=== PATIENT | female | born 1990 | race Caucasian/White ===

== ENCOUNTER 2018-09-01 19:51 | Emergency (ER) | payer OTHER ==
[~2018-09-01] VITALS: Ht 162.6 cm; Wt 45.4 kg
[2018-09-01] MEDS ORDERED: CYMBALTA30 MG (20:06)
[2018-09-01] MEDS ORDERED: QUETIAPINE FUM100 MG (20:06)
[2018-09-01] MEDS ORDERED: ATIVAN1 M1 (20:06)
[2018-09-01] MEDS ORDERED: DICYCLOMINE HCL20 MG (20:07)
[2018-09-01] MEDS ORDERED: TOPAMAX100 MG (20:07)
[2018-09-01] MEDS ORDERED: ONDANSETRON HCL4 M2 (20:07)
[2018-09-01 20:37] LABS: URINE BILIRUBIN NEGATIVE (Negative); URINE BLOOD TRACE (Negative); URINE CLARITY SL CLOUDY; URINE COLOR YELLOW; URINE GLUCOSE-RANDOM NEGATIVE (Negative); URINE KETONES NEGATIVE (Negative); URINE LEUKOCYTES-REFLEX TRACE (Negative); URINE NITRITE-REFLEX NEGATIVE (Negative); URINE PROTEIN TRACE (Negative); URINE SPECIFIC GRAVITY 1.015 (1.005-1.030)
[2018-09-01 20:54] LABS: AMORPHOUS PHOSPHATES Moderate /LPF (None Seen); MUCUS 0-3 Light strn/LPF (None Seen); SQUAMOUS >10 Many /LPF (0-3)
[2018-09-01 20:55] LABS: CASTS None Seen /LPF (None Seen); URINE RBC 0-2 Rare /HPF (0-2)
[2018-09-01 20:56] LABS: URINE WBC-REFLEX 0-5 Rare /HPF (0-5)
[2018-09-01 20:57] LABS: BACTERIA-REFLEX None Seen /HPF (None Seen)
[2018-09-01 21:06] LABS: ABSOLUTE LYMPHOCYTES 1.4 thou/uL (0.8-5.3); ABSOLUTE MONOCYTES 0.3 thou/uL (0.0-1.2); ABSOLUTE NEUTROPHILS 5.5 thou/uL (1.6-8.1); BASOPHILS 0.2 %; EOSINOPHILS 0.5 %; HEMATOCRIT 34.2 % (37.0-47.0); HEMOGLOBIN 11.6 gm/dL (12.0-15.0); MCH 29.2 pg (26.0-34.0); MCHC 33.9 g/dL (28.0-37.0); MCV 86.1 fL (80.0-100.0); MONOCYTES 4.5 %; MPV 9.8 fl. (7.2-11.1); NUCLEATED RBCS 0 /100WBC; PLATELET COUNT* 124 thou/uL (150-400); POLYS 75.8 %; RBC 3.97 mil/uL (4.20-5.00); RDW-CV 14.5 % (10.5-14.5); WBC 7.3 thou/uL (4.0-11.0)
[2018-09-01 21:13] LABS: CALCIUM 8.2 mg/dL (8.5-10.1); CREATININE 0.8 mg/dL (0.6-1.3); POTASSIUM 3.3 mmol/L (3.5-5.1)
[2018-09-01 21:18] LABS: ALBUMIN 3.6 g/dL (3.4-5.0); TOTAL BILIRUBIN 0.5 mg/dL (<0.1-1.0); TOTAL PROTEIN 6.2 g/dL (6.4-8.2)
[2018-09-01] MEDS ORDERED: ACETAMINOPHEN-1 EAC1 PO (22:30)
[2018-09-01 22:50] VITALS: BP 134/85
== END 2018-09-01 22:51 | disposition home or self-care (01) ==
LOC: M.ERS 19:51
PROVIDERS: Emergency Medicine; Physician Assistant
DX: K52.9 Noninfective gastroenteritis and colitis, unspecified (principal); N83.201 Unspecified ovarian cyst, right side; J45.909 Unspecified asthma, uncomplicated; G43.909 Migraine, unspecified, not intractable, without status migrainosus; Z88.2 Allergy status to sulfonamides; Z88.8 Allergy status to other drugs, medicaments and biological substances; Z90.49 Acquired absence of other specified parts of digestive tract; Z85.41 Personal history of malignant neoplasm of cervix uteri

== ENCOUNTER 2018-11-05 12:00 | Emergency (ER) | payer OTHER ==
[~2018-11-05] VITALS: Ht 162.6 cm; Wt 49.9 kg
[~2018-11-05 12:00] MED LIST: ACETAMINOPHEN-1 EAC1 PO; ATIVAN1 M1; CYMBALTA30 MG; DICYCLOMINE HCL20 MG; ONDANSETRON HCL4 M2; QUETIAPINE FUM100 MG; TOPAMAX100 MG
[2018-11-05] MEDS ORDERED: TRAMADOL 50 MG50 MG PO (13:16)
[2018-11-05 13:38] VITALS: BP 103/78
== END 2018-11-05 13:39 | disposition home or self-care (01) ==
LOC: M.ERS 12:00
DX: S90.122A Contusion of left lesser toe(s) without damage to nail, initial encounter (principal); J45.909 Unspecified asthma, uncomplicated; G43.909 Migraine, unspecified, not intractable, without status migrainosus; F41.9 Anxiety disorder, unspecified; F32.9 Major depressive disorder, single episode, unspecified; Z88.2 Allergy status to sulfonamides; Z88.8 Allergy status to other drugs, medicaments and biological substances; Z88.6 Allergy status to analgesic agent; Z90.49 Acquired absence of other specified parts of digestive tract; W22.8XXA Striking against or struck by other objects, initial encounter; Y92.89 Other specified places as the place of occurrence of the external cause; Y93.01 Activity, walking, marching and hiking; Y99.8 Other external cause status

== ENCOUNTER 2018-12-02 11:24 | Emergency (ER) | payer OTHER ==
[~2018-12-02] VITALS: Ht 162.6 cm; Wt 49.0 kg
[~2018-12-02 11:24] MED LIST changes: +TRAMADOL 50 MG50 MG PO
[2018-12-02 12:32] LABS: URINE BILIRUBIN NEGATIVE (Negative); URINE BLOOD NEGATIVE (Negative); URINE CLARITY CLEAR; URINE COLOR YELLOW; URINE GLUCOSE-RANDOM NEGATIVE (Negative); URINE KETONES NEGATIVE (Negative); URINE LEUKOCYTES-REFLEX 1+ (Negative); URINE NITRITE-REFLEX NEGATIVE (Negative); URINE PROTEIN NEGATIVE (Negative); URINE SPECIFIC GRAVITY >= 1.030 (1.005-1.030); URINE UROBILINOGEN 0.2 E.U./dl (0.2-1.0)
[2018-12-02 12:47] LABS: BACTERIA-REFLEX 1-9 Few /HPF (None Seen); CASTS None Seen /LPF (None Seen); CRYSTALS None Seen /LPF (None Seen); MUCUS 4-6 Moderate strn/LPF (None Seen); SQUAMOUS 4-10 Moderate /LPF (0-3); URINE RBC 0-2 Rare /HPF (0-2); URINE WBC-REFLEX 6-15 Few /HPF (0-5)
[2018-12-02 12:56] LABS: ABSOLUTE LYMPHOCYTES 1.3 thou/uL (0.8-5.3); ABSOLUTE MONOCYTES 0.3 thou/uL (0.0-1.2); LYMPHOCYTES 28.4 %; MONOCYTES 6.3 %; NUCLEATED RBCS 0 /100WBC; WBC 4.7 thou/uL (4.0-11.0)
[2018-12-02] MEDS ORDERED: DOXYCYCLINE MO100 M1 PO (12:57)
[2018-12-02 12:59] LABS: BASOPHILS 0.3 %; EOSINOPHILS 0.9 %; HEMATOCRIT 38.6 % (37.0-47.0); HEMOGLOBIN 13.4 gm/dL (12.0-15.0); MCH 29.8 pg (26.0-34.0); MCHC 34.6 g/dL (28.0-37.0); MCV 86.1 fL (80.0-100.0); MPV 9.8 fl. (7.2-11.1); POLYS 64.1 %; RBC 4.49 mil/uL (4.20-5.00); RDW-CV 13.4 % (10.5-14.5)
[2018-12-02 13:07] VITALS: BP 107/64
[2018-12-02 13:10] LABS: CALCIUM 8.8 mg/dL (8.5-10.1); CREATININE 0.8 mg/dL (0.6-1.3); POTASSIUM 3.6 mmol/L (3.5-5.1)
[2018-12-02 13:20] LABS: ALBUMIN 4.2 g/dL (3.4-5.0); TOTAL BILIRUBIN 0.5 mg/dL (<0.1-1.0)
[2018-12-02 13:26] LABS: PLATELET COUNT* 140 thou/uL (150-400)
== END 2018-12-02 13:08 | disposition home or self-care (01) ==
LOC: M.ERS 11:24
PROVIDERS: Physician Assistant
DX: N39.0 Urinary tract infection, site not specified (principal); R59.1 Generalized enlarged lymph nodes; G43.909 Migraine, unspecified, not intractable, without status migrainosus; F41.9 Anxiety disorder, unspecified; F32.9 Major depressive disorder, single episode, unspecified; J45.909 Unspecified asthma, uncomplicated; Z88.1 Allergy status to other antibiotic agents; Z88.2 Allergy status to sulfonamides; Z88.6 Allergy status to analgesic agent; Z88.8 Allergy status to other drugs, medicaments and biological substances

== ENCOUNTER 2018-12-15 14:59 | Emergency (ER) | payer OTHER ==
[~2018-12-15] VITALS: Ht 162.6 cm; Wt 48.5 kg
[~2018-12-15 14:59] MED LIST changes: +DOXYCYCLINE MO100 M1 PO
[2018-12-15 15:32] LABS: URINE BLOOD TRACE (Negative); URINE CLARITY CLEAR; URINE COLOR YELLOW; URINE GLUCOSE-RANDOM NEGATIVE (Negative); URINE LEUKOCYTES-REFLEX NEGATIVE (Negative); URINE NITRITE-REFLEX NEGATIVE (Negative); URINE PROTEIN TRACE (Negative); URINE SPECIFIC GRAVITY 1.025 (1.005-1.030); URINE UROBILINOGEN 0.2 E.U./dl (0.2-1.0)
[2018-12-15 15:37] LABS: ICTOTEST (BILI CONFIRMATORY) Negative (Negative); URINE BILIRUBIN 2+ (Negative); URINE KETONES 3+ (Negative)
[2018-12-15] MEDS ORDERED: MACROBID 100 M100 M2 PO (16:12)
[2018-12-15] MEDS ORDERED: PYRIDIUM100 M1 PO (16:13)
[2018-12-15] MEDS ORDERED: NYSTATIN100000 UNI SW&SWALLOW (16:21)
[2018-12-15 16:25] VITALS: BP 107/69
== END 2018-12-15 16:25 | disposition home or self-care (01) ==
LOC: M.ERS 14:59
PROVIDERS: Nurse Practitioner Family
DX: B37.9 Candidiasis, unspecified (principal); R30.0 Dysuria; J45.909 Unspecified asthma, uncomplicated; G43.909 Migraine, unspecified, not intractable, without status migrainosus; F32.9 Major depressive disorder, single episode, unspecified; F41.9 Anxiety disorder, unspecified; Z85.41 Personal history of malignant neoplasm of cervix uteri; Z90.49 Acquired absence of other specified parts of digestive tract; Z91.048 Other nonmedicinal substance allergy status; Z88.2 Allergy status to sulfonamides; Z88.8 Allergy status to other drugs, medicaments and biological substances; Z88.6 Allergy status to analgesic agent

== ENCOUNTER 2019-09-29 10:01 | Emergency (ER) | payer OTHER ==
[~2019-09-29] VITALS: Ht 162.6 cm; Wt 49.4 kg
[~2019-09-29 10:01] MED LIST changes: +MACROBID 100 M100 M2 PO; +NYSTATIN100000 UNI SW&SWALLOW; +PYRIDIUM100 M1 PO
[2019-09-29] MEDS ORDERED: ATIVAN1 M1 PO (10:14)
[2019-09-29] MEDS ORDERED: NEURONTIN100 MG PO (10:14)
[2019-09-29] MEDS ORDERED: LEXAPRO20 MG PO (10:14)
[2019-09-29] MEDS ORDERED: REMERON 30 MG T30 M1 PO (10:15)
[2019-09-29] MEDS ORDERED: NORCO 5-325 TA1 EAC2 PO (12:04)
[2019-09-29 12:12] VITALS: BP 99/71
== END 2019-09-29 12:13 | disposition home or self-care (01) ==
LOC: M.ERS 10:01
DX: S00.83XA Contusion of other part of head, initial encounter (principal); J45.909 Unspecified asthma, uncomplicated; G43.909 Migraine, unspecified, not intractable, without status migrainosus; Z85.41 Personal history of malignant neoplasm of cervix uteri; Z88.2 Allergy status to sulfonamides; Z88.1 Allergy status to other antibiotic agents; Z88.6 Allergy status to analgesic agent; Z88.8 Allergy status to other drugs, medicaments and biological substances; W22.8XXA Striking against or struck by other objects, initial encounter; Y93.89 Activity, other specified; Y92.89 Other specified places as the place of occurrence of the external cause; Y99.8 Other external cause status